=== PATIENT | female | born 1960 | race Caucasian/White ===

== ENCOUNTER 2017-08-15 07:56 | Emergency (ER) | payer BC, OTHER ==
[~2017-08-15] VITALS: Ht 162.6 cm; Wt 81.6 kg
[2017-08-15] MEDS ORDERED: KETOROLAC TROMETHAMINE 60 MG/2 ML VIAL IM ONE (08:15)
[2017-08-15] MEDS ORDERED: DIAZEPAM 2 MG TAB PO ONE ×2 (08:15→12:00)
--- NOTE | 2017-08-15 09:00 | Diagnostic Imaging Report ---
Lumbar spine, 3 views. History: Pain. Comparison: None. Discussion: There are 5 lumbar type vertebral bodies. No displaced fracture or dislocation. The alignment of the lumbar spine is normal. Degenerative changes are evidenced by anterior osteophytosis. The vertebral bodies and intervertebral disk spaces are within normal limits. There is no evidence of spondylolisthesis or spondylolysis. No evidence of lytic or sclerotic lesion. The paravertebral soft tissues are unremarkable. Cholecystectomy clips. IMPRESSION: No acute radiographic abnormality. Signed by: Dr. Edgar Raines M.D. on 08/15/2017 8:56 AM
--- NOTE | 2017-08-15 09:01 | Diagnostic Imaging Report ---
Thoracic spine, complete. History: Pain. Comparison: None. Discussion: No displaced fracture or dislocation. The alignment of the thoracic spine is normal. Degenerative changes evidenced by anterior osteophytosis. The vertebral bodies and intervertebral disk spaces are within normal limits. There is no evidence of spondylolisthesis or spondylolysis. No evidence of lytic or sclerotic lesion. The paravertebral soft tissues are unremarkable. IMPRESSION: No acute radiographic abnormality. Signed by: Dr. Edgar Raines M.D. on 08/15/2017 8:57 AM
[2017-08-15] MEDS ORDERED: KETOROLAC TROMETHAMINE 60 MG/2 ML VIAL ONE (11:28)
== END 2017-08-15 12:54 | disposition home or self-care (01) ==
LOC: ER 07:56
DX: M54.6 Pain in thoracic spine (principal); S39.012A Strain of muscle, fascia and tendon of lower back, initial encounter; M62.830 Muscle spasm of back
CPT/HCPCS: 72072; 72100; 99283; J1885